=== PATIENT | male | born 1955 | race Caucasian/White ===

== ENCOUNTER 2017-09-14 06:52 | Emergency (ER) | payer OTHER ==
[~2017-09-14] VITALS: Ht 172.7 cm; Wt 80.7 kg
[2017-09-14] MEDS ORDERED: BENADRYL25 MG PO (07:06)
[2017-09-14] MEDS ORDERED: CLARITIN10 MG PO (07:06)
[2017-09-14] MEDS ORDERED: DUPIXENT300 MG/2 M INJECTION (07:08)
[2017-09-14 08:50] VITALS: BP 111/76
== END 2017-09-14 08:51 | disposition home or self-care (01) ==
LOC: ER 06:52
DX: R13.10 Dysphagia, unspecified (principal)

== ENCOUNTER → 2020-08-03 | Outpatient (CLI) | payer OTHER ==
[~2020-08-03] MED LIST: BENADRYL25 MG PO; CLARITIN10 MG PO; DUPIXENT300 MG/2 M INJECTION
== END ==
LOC: RAD 15:54
PROVIDERS: ATTEND Neuromusculoskeletal Medicine & OMM
DX: M25.461 Effusion, right knee (principal)